=== PATIENT | female | born 1960 | race Caucasian/White ===

== ENCOUNTER → 2017-06-07 | Day surgery (SDC) | payer BC ==
[~2017-06-07] MED LIST: Lidocaine 1% 20 ML MDV ONE; Lidocaine 1% 30 ML SDV INJECT ONE
[2017-06-07 14:03] VITALS: BP 145/83
--- NOTE | 2017-06-08 08:07 | OR ---
DATE OF OPERATION: 06/07/2017 PREOPERATIVE DIAGNOSIS: 1. VENOUS INSUFFICIENCY. 2. PAINFUL VARICOSE VEINS WITH COMPLICATIONS. POSTOPERATIVE DIAGNOSIS: 1. VENOUS INSUFFICIENCY. 2. PAINFUL VARICOSE VEINS WITH COMPLICATIONS. SURGEON: Vinnie Mccord MD PROCEDURE: BILATERAL BRETT, GSVS. ANESTHESIA: Local with tumescent. COMPLICATIONS: None. SPECIMEN: None. FINDINGS: Successful BRETT bilateral GSVs. INDICATIONS: The patient has documented severe venous insufficiency of both greater saphenous veins in each leg. She elected to proceed with endovenous ablation. DESCRIPTION OF PROCEDURE: The patient was brought to the operating room suite and the insufficient saphenous veins on each leg mapped via ultrasound and diagrammed on the overlying skin along with the depth and diameter of the vein to be treated. Both limbs were prepped and draped in sterile fashion. The patient was placed in reverse Trendelenburg position in the left leg. Local anesthesia was instilled over the access site. The vein was accessed using ultrasound guidance and Seldinger technique. A guidewire was introduced through the needle and then a small incision was made with 11 blade scalpel. After the needle removed and guidewire in place, a 6-Wolof sheath was flipped over the guidewire and held in place by skin tension. Guidewire was removed and the sheath was flushed. The radiofrequency probe was placed into the vein through the sheath and positioned approximately 2.1 cm distal to the saphenofemoral junction under ultrasound guidance. Once radiofrequency probe position confirmed, tumescent anesthesia was infiltrated under ultrasound guidance, precisely in the perivenous compartment along the length of the vein from the entry site to the saphenofemoral junction until we got a nice halo effect around the whole vein. The patient was placed in Trendelenburg position to exsanguinate the superficial system. Radiofrequency probe position was again confirmed via ultrasound and under direct external compression along the length of the healing element, radiofrequency energy was applied. The vein was segmentally ablated by heating a 7 cm segment and indexing the catheter forward 6 cm until treatment length complete. Device temperature was maintained at 120 degrees Celsius with an initial power level of 40 garces, dropping to below 20 for each treatment. Total treatment time was 3 minutes and 20 seconds with 10 radiofrequency cycles. Catheter and sheath were withdrawn without any complication and pressure dressing was applied over the entrance wound in the left leg. The right GSV was then accessed in similar fashion using ultrasound guidance and Seldinger technique with the patient in reverse Trendelenburg position. The guidewire was introduced through the needle which was then exchanged over the guidewire for a 6-Wolof sheath after a small incision was made with 11 blade scalpel. Sheath was held in place by skin tension. The guidewire was removed. The sheath was flushed and radiofrequency probe was placed into the vein through the sheath and positioned approximately 2.1 cm distal to the saphenofemoral junction under ultrasound guidance. After probe position was again verified via ultrasound, tumescent anesthesia was infiltrated, precisely in the perivenous compartment along the length of the vein from the entry site to the saphenofemoral junction until we had a nice halo effect around the vein. The patient was placed back in Trendelenburg position to exsanguinate the superficial system. Once radiofrequency probe position again confirmed, under direct external compression along the length of the heating element, radiofrequency energy was applied. The vein was ablated heating a 7 cm segment and indexing the catheter forward 6 cm until treatment length complete. Device temperature was maintained at 120 degrees Celsius with an initial power level of 40 garces, dropping below 20 for each treatment. Total radiofrequency treatment time was 3 minutes and 14 seconds with 10 radiofrequency cycles. Repeat ultrasound of both saphenous vein confirmed successful treatment. Catheter and sheath were withdrawn from the right leg. Hemostasis again achieved under direct pressure. Skin incisions over both access sites were closed with the bandage and a compression wrap was put on both legs in the level of the foot to the groin. The patient was stable in the recovery room. FAITH/JOSE /[id number]
== END ==
LOC: CC.SDS 06:32
PROVIDERS: ATTEND Family Medicine
DX: I87.2 Venous insufficiency (chronic) (peripheral) (principal); I83.813 Varicose veins of bilateral lower extremities with pain; I83.893 Varicose veins of bilateral lower extremities with other complications; Z88.1 Allergy status to other antibiotic agents; Z88.2 Allergy status to sulfonamides
CPT/HCPCS: A4216

== ENCOUNTER → 2019-08-16 | Day surgery (SDC) | payer BC ==
[~2019-08-16] MED LIST changes: -Lidocaine 1% 30 ML SDV INJECT ONE
[2019-08-16 15:44] VITALS: BP 141/95; PULSE 65
== END ==
LOC: CC.SDS 10:27
PROVIDERS: ATTEND Family Medicine
DX: I87.2 Venous insufficiency (chronic) (peripheral) (principal)
CPT/HCPCS: A4216

== ENCOUNTER → 2019-10-26 | Day surgery (SDC) | payer BC ==
[2019-10-26 09:27] VITALS: BP 138/91; PULSE 77
== END ==
LOC: CC.SDS 08:41
PROVIDERS: ATTEND Family Medicine
DX: I83.811 Varicose veins of right lower extremity with pain (principal); I83.11 Varicose veins of right lower extremity with inflammation

== ENCOUNTER 2024-06-01 08:03 | Day surgery (SDC) | payer BC ==
[2024-06-01] MEDS: Lactated Ringers 1,000 ML IV SCH (08:13)
[2024-06-01] MEDS ORDERED: Propofol 200 MG/20 ML SDV ONE (08:45)
[2024-06-01] MEDS ORDERED: Ketamine 200 MG/20 ML MDV ONE (08:45)
[2024-06-01] MEDS ORDERED: Ondansetron 4 MG/2 ML SDV ONE (08:45)
[2024-06-01] MEDS ORDERED: fentaNYL 50 MCG/ML SDV ONE (08:45)
[2024-06-01 09:56] VITALS: BP 124/76; PULSE 62
== END 2024-06-01 09:55 | disposition home or self-care (01) ==
LOC: CC.SDS 08:03
PROVIDERS: ATTEND Family Medicine
DX: Z12.11 Encounter for screening for malignant neoplasm of colon (principal); K57.30 Diverticulosis of large intestine without perforation or abscess without bleeding; D17.79 Benign lipomatous neoplasm of other sites; E78.5 Hyperlipidemia, unspecified; M81.0 Age-related osteoporosis without current pathological fracture; J45.909 Unspecified asthma, uncomplicated; Z79.899 Other long term (current) drug therapy; Z88.2 Allergy status to sulfonamides
CPT/HCPCS: 00812; J2405; J2704; J3010; J3490; J7120